=== PATIENT | male | born 1965 | race Hispanic/Latino ===

== ENCOUNTER 2017-04-22 20:20 | Emergency (ER) | payer MEDICARE ==
[2017-04-23 00:26] LABS: Basophils % (Auto) 2.9 % (0.0-1.8); Eosinophils % (Auto) 0.4 % (0.0-4.3); Hematocrit 38.8 % (35.5-45.6); Hemoglobin 13.9 gm/dl (11.8-15.2); Mean Corpuscular HGB Conc 36 % (32-34); Mean Corpuscular Hemoglobin 33 pg (28-32); Mean Corpuscular Volume 91 fl (84-94); Platelet Count 378 K/mm3 (140-440); Red Blood Count 4.29 M/mm3 (3.65-5.03); Red Cell Distribution Width 12.7 % (13.2-15.2); White Blood Count 9.9 K/mm3 (4.5-11.0)
[2017-04-23 00:47] LABS: Anion Gap 19 mmol/L; BUN/Creatinine Ratio 4; Blood Urea Nitrogen 3 mg/dL (9-20); Calcium 9.5 mg/dL (8.4-10.2); Carbon Dioxide 20 mmol/L (22-30); Chloride 104.2 mmol/L (98-107); Glucose 100 mg/dL (75-100); Potassium 3.3 mmol/L (3.6-5.0); Sodium 140 mmol/L (137-145)
[2017-04-23 00:49] LABS: Alanine Aminotransferase 8 units/L (7-56); Albumin 4.3 g/dL (3.9-5); Albumin/Globulin Ratio 1.6 %; Alkaline Phosphatase 101 units/L (35-129); Anion Gap 19 mmol/L; BUN/Creatinine Ratio 4; Blood Urea Nitrogen 3 mg/dL (9-20); Calcium 9.6 mg/dL (8.4-10.2); Carbon Dioxide 20 mmol/L (22-30); Chloride 104.6 mmol/L (98-107); Glucose 100 mg/dL (75-100); Lipase 29 units/L (13-60); Potassium 3.2 mmol/L (3.6-5.0); Sodium 140 mmol/L (137-145)
[2017-04-23] MEDS ORDERED: TYLENOL PO ONE (00:53)
[2017-04-23 01:26] LABS: Bilirubin,Urine NEG (Negative); Blood,Urine NEG (Negative); Ketones,Urine NEG (Negative); Leukocyte Esterase,Urine NEG (Negative); Nitrite,Urine NEG (Negative); Protein,Urine <15 mg/dL mg/dL (Negative); RBC,Urine < 1.0 /HPF (0.0-6.0); Urobilinogen,Urine < 2.0 mg/dL (<2.0); WBC,Urine < 1.0 /HPF (0.0-6.0)
[2017-04-23] MEDS ORDERED: MORPHINE IV ONE (10:21)
[2017-04-23] MEDS ORDERED: K-DUR PO ONE (10:30)
--- NOTE | 2017-04-23 10:53 | Emergency Department Report ---
HPI - General Chief Complaint: Chest Pain Time Seen by Provider: 04/23/17 09:56 - HPI HPI: 52-year-old male presents to the emergency department with complaint of right lower quadrant abdominal and flank pain that has been going on for the past 1-2 days. He denies any nausea, vomiting, diarrhea or constipation, dysuria or penile discharge. He says that he has a history of diverticulitis but has not had an episode of this for about 2 years. He has not taken anything for his symptoms prior to presentation. He also has a past medical history of COPD, hypertension, hepatitis C, esophageal varices and has a previous cholecystectomy. No recent travel or sick contacts at home. His primary care physician is a Dr. Santhosh Blank. ED Past Medical Hx - Past Medical History Previous Medical History?: Yes Hx Hypertension: Yes Hx Psychiatric Treatment: Yes (anxiety) Hx COPD: Yes Additional medical history: hep C., COLITIS, diverticulitis, esophageal varisces - Surgical History Past Surgical History?: Yes Additional Surgical History: "gallbladder" and "knee surgery" - Social History Smoking Status: Current Every Day Smoker - Medications Home Medications: Home Medications Medication Instructions Recorded Confirmed Last Taken Type Ondansetron [Zofran Odt] 4 mg PO Q6H #20 tab.rapdis 10/12/14 Unknown Rx Acetaminophen 650 mg PO Q6H PRN #20 tablet 04/23/17 Unknown Rx traMADol [Ultram 50 MG tab] 50 mg PO Q6HR PRN #3 tablet 04/23/17 Unknown Rx ED Review of Systems ROS: Stated complaint: LIGHTHEADED Other details as noted in HPI Comment: All other systems reviewed and negative Constitutional: denies: chills, fever Eyes: denies: eye pain, eye discharge, vision change ENT: denies: ear pain, throat pain Respiratory: denies: cough, shortness of breath, wheezing Cardiovascular: denies: palpitations, edema Gastrointestinal: abdominal pain. denies: nausea, vomiting Genitourinary: denies: urgency, dysuria Musculoskeletal: denies: arthralgia, myalgia Skin: denies: rash, lesions Neurological: denies: headache, weakness, paresthesias Physical Exam - Physical Exam Vital Signs: Vital Signs 04/22/17 04/22/17 04/23/17 22:33 23:29 00:58 Temperature 98.0 F 98.0 F Pulse Rate 89 Respiratory 19 20 18 Rate Blood Pressure 160/108 160/108 Blood Pressure [Left] Blood Pressure [Right] O2 Sat by Pulse 97 Oximetry 04/23/17 04/23/17 04/23/17 08:29 08:45 08:57 Temperature 97.7 F 98.8 F Pulse Rate 78 60 Respiratory 18 24 Rate Blood Pressure 158/82 Blood Pressure 168/95 [Left] Blood Pressure 166/96 [Right] O2 Sat by Pulse 98 98 Oximetry 04/23/17 04/23/17 04/23/17 09:00 09:16 09:30 Temperature Pulse Rate 64 56 L 66 Respiratory 23 25 H 25 H Rate Blood Pressure 158/82 168/95 167/85 Blood Pressure [Left] Blood Pressure [Right] O2 Sat by Pulse 96 94 Oximetry 04/23/17 09:46 Temperature Pulse Rate 66 Respiratory 25 H Rate Blood Pressure 167/85 Blood Pressure [Left] Blood Pressure [Right] O2 Sat by Pulse 99 Oximetry Physical Exam: GENERAL: The patient is well-developed well-nourished. HENT: Normocephalic. Atraumatic. Patient has moist mucous membranes. EYES: Extraocular motions are intact. Pupils equal reactive to light bilaterally. NECK: Supple. Trachea is midline. CHEST/LUNGS: Clear to auscultation. There is no respiratory distress noted. HEART/CARDIOVASCULAR: Regular. There is no tachycardia. There is no murmur. ABDOMEN: Abdomen is soft, nontender. Patient has normal bowel sounds. There is no abdominal distention. SKIN: Skin is warm and dry. NEURO: The patient is awake, alert, and oriented. The patient is cooperative. The patient has no focal neurologic deficits. The patient has normal speech and gait. MUSCULOSKELETAL: There is no tenderness or deformity. There is no limitation range of motion. There is no evidence of acute injury. ED Course Vital Signs 04/22/17 04/22/17 04/23/17 22:33 23:29 00:58 Temperature 98.0 F 98.0 F Pulse Rate 89 Respiratory 19 20 18 Rate Blood Pressure 160/108 160/108 Blood Pressure [Left] Blood Pressure [Right] O2 Sat by Pulse 97 Oximetry 04/23/17 04/23/17 04/23/17 08:29 08:45 08:57 Temperature 97.7 F 98.8 F Pulse Rate 78 60 Respiratory 18 24 Rate Blood Pressure 158/82 Blood Pressure 168/95 [Left] Blood Pressure 166/96 [Right] O2 Sat by Pulse 98 98 Oximetry 04/23/17 04/23/17 04/23/17 09:00 09:16 09:30 Temperature Pulse Rate 64 56 L 66 Respiratory 23 25 H 25 H Rate Blood Pressure 158/82 168/95 167/85 Blood Pressure [Left] Blood Pressure [Right] O2 Sat by Pulse 96 94 Oximetry 04/23/17 09:46 Temperature Pulse Rate 66 Respiratory 25 H Rate Blood Pressure 167/85 Blood Pressure [Left] Blood Pressure [Right] O2 Sat by Pulse 99 Oximetry - Reevaluation(s) Reevaluation #1: I went back to see the patient after the results of the CT scan, which came back as a normal CT scan of the abdomen and pelvis without any acute pathology. His labs have been completely normal. Vital signs within normal throughout the ED course. The patient has been here for 16 hours in total and does not appear in any acute distress. The patient is asking for pain medication. I looked him up on the [employer] prescription monitoring system and it appears that he was written for 30 pills of oxycodone 10 mg and 30 pills of morphine 15 mg on 04/12/17 which would be a 15 day supply. I told patient that I am uncomfortable providing him any narcotic pain medication as he should still have some of these left and should have a few days in order to follow up with a primary care physician. This angered the patient as he says he deserves pain medication and if he wanted to he would just go it off of the street. The patient also says that I called him a drug addict. I never said this or anything that sounds remotely like this but just explained to him that the [employer] prescription monitoring system shows that the medication should last him at least until the 15th of this month and that it is the 12th and therefore the medication is gone quicker than expected. The patient then says someone stole his pain medication from him. It should also be noted that I told the patient that his CT results did not show evidence of diverticulitis. This caused the patient to say that I was calling him a liar as he believes that a person always has diverticulitis. Despite the patient consistently yelling at me, I calmly corrected him that I never told him he has a liar and that he always has diverticulosis but does not have diverticulitis and attempted to explain the difference. 04/23/17 12:51 ED Medical Decision Making - Lab Data Result diagrams: 04/22/17 23:51 04/22/17 23:51 - EKG Data -: EKG Interpreted by Me EKG shows normal: sinus rhythm, axis, intervals (prolonged QT and QTC intervals) , QRS complexes, ST-T waves Rate: normal - EKG Data When compared to previous EKG there are: previous EKG unavailable Interpretation: other (sinus rhythm, normal axis, normal rate, prolonged QT and QTC intervals. No ST elevation CT) - Radiology Data Radiology results: report reviewed CT ABDOMEN PELVIS WITH CONTRAST: HISTORY: abdominal pain. COMPARISON: none. TECHNIQUE: Helical CT in 1.25mm intervals following IV contrast. Sagittal and coronal reconstructions. FINDINGS: Lung bases: Normal. Liver: Normal. Biliary system: Cholecystectomy changes. No biliary dilatation. Pancreas: Normal. Spleen: Normal. Kidneys/ureters/bladder: Normal. Adrenal glands: Normal. Aorta: Normal. Intestines: Mild sigmoid diverticulosis is noted. No acute inflammatory changes or bowel obstruction. Appendix: Normal. Pelvic viscera: Normal. Ascites: None. Adenopathy: None. Musculoskeletal: Moderate degenerative disc disease at L2-3. No fracture or bone lesion. IMPRESSION: Unremarkable CT scan of the abdomen and pelvis with contrast. Transcribed By: TTR Dictated By: MIKE SEGAL JR, MD Electronically Authenticated By: MIKE SEGAL JR, MD Signed Date/Time: 04/23/17 1219 - Medical Decision Making This patient was evaluated mostly for his abdominal and flank pain. There was some mention of chest pain earlier through triage with the patient did not mention this to me at any point, even before discharge. However he did have a negative troponin and a normal appearing EKG that did not show any signs of ST elevation CT. His labs were also unremarkable for any abdominal abnormalities including normal lipase, bilirubin and LFTs. Secondary to his complaints of diverticulitis and his abdominal pain, a CT of the abdomen and pelvis was done that did not show any acute process. As mentioned in the reevaluation section, the patient got very angry when he was not given a prescription for narcotic pain medication and refused NSAIDs. I eventually gave him a total of 3 pills of tramadol by prescription. I spoke with risk management. Overall the patient appeared comfortable every time he was reevaluated. He was seen ambulatory in the emergency department without any instability. He appears safe for discharge home and has been given referrals for primary care. He was encouraged to return to the emergency Department with any worsening of symptoms or any acute distress. Vital signs stable. - Differential Diagnosis diverticulitis, diverticulosis, colitis, appendicitis Critical Care Time: No Critical care attestation.: If time is entered above; I have spent that time in minutes in the direct care of this critically ill patient, excluding procedure time. ED Disposition Clinical Impression: Flank pain, Hypokalemia Abdominal pain Qualifiers: Abdominal location: unspecified location Qualified Code(s): R10.9 - Unspecified abdominal pain Hypertension Qualifiers: Hypertension type: essential hypertension Qualified Code(s): I10 - Essential ( primary) hypertension Disposition: TO HOME OR SELFCARE Is pt being admited?: No Condition: Stable Instructions: Abdominal Pain (ED), Hypertension (ED), Flank Pain (ED) Additional Instructions: Please follow-up with your primary care physician in the next few days. Return to the emergency Department with any worsening of your symptoms or any acute distress. Try and stay away from foods that are high in salt and caffeinated products to help with your blood pressure. Keep a blood pressure log. Prescriptions: Acetaminophen 650 mg PO Q6H PRN #20 tablet PRN Reason: Pain traMADol [Ultram 50 MG tab] 50 mg PO Q6HR PRN #3 tablet PRN Reason: Pain Referrals: [facility] [Outside] - 3-5 Days HAYDEN PATEL MD [Primary Care Provider] - 3-5 Days Time of Disposition: 12:45
[2017-04-23] MEDS ORDERED: ZESTRIL PO ONE (11:00)
[2017-04-23 11:46] VITALS: BP 169/98
--- NOTE | 2017-04-23 12:24 | Cat Scan Report ---
CT ABDOMEN PELVIS WITH CONTRAST: HISTORY: abdominal pain. COMPARISON: none. TECHNIQUE: Helical CT in 1.25mm intervals following IV contrast. Sagittal and coronal reconstructions. FINDINGS: Lung bases: Normal. Liver: Normal. Biliary system: Cholecystectomy changes. No biliary dilatation. Pancreas: Normal. Spleen: Normal. Kidneys/ureters/bladder: Normal. Adrenal glands: Normal. Aorta: Normal. Intestines: Mild sigmoid diverticulosis is noted. No acute inflammatory changes or bowel obstruction. Appendix: Normal. Pelvic viscera: Normal. Ascites: None. Adenopathy: None. Musculoskeletal: Moderate degenerative disc disease at L2-3. No fracture or bone lesion. IMPRESSION: Unremarkable CT scan of the abdomen and pelvis with contrast.
== END 2017-04-23 13:09 | disposition home or self-care (01) ==
LOC: ED 20:20
DX: E87.6 Hypokalemia (principal); R10.31 Right lower quadrant pain; I10 Essential (primary) hypertension; J44.9 Chronic obstructive pulmonary disease, unspecified; F17.200 Nicotine dependence, unspecified, uncomplicated
CPT/HCPCS: 36415; 74177; 80048; 80053; 81001; 83690; 84484; 85025; 93005; 93010; 96374; 99285; J2270; Q9967

== ENCOUNTER 2019-06-24 22:40 | Observation (INO) | payer MEDICARE ==
[2019-06-24] MEDS ORDERED: SODIUM CHLORIDE 0.9% 1000 ML 1,000 ML IV ONE (23:16)
[2019-06-24] MEDS ORDERED: ONDANSETRON 4 MG/2 ML INJ IV ONE (23:16)
[2019-06-24] MEDS ORDERED: HYDROmorphone 1 MG/1 ML INJ IV ONE (23:16)
--- NOTE | 2019-06-24 23:18 | Emergency Department Report ---
ED Abdominal Pain HPI - General Chief Complaint: Urogenital-Male Stated Complaint: LEFT TESTICLE/LOWER ABDOMINAL PAIN Time Seen by Provider: 06/24/19 23:10 Source: patient, EMS Mode of arrival: Ambulatory Limitations: No Limitations - History of Present Illness Initial Comments: Patient is a 54-year-old male that presents emergency room with complaints of right lower abdominal pain and left groin pain. Patient states that he has had a hernia for a year that he was supposed to get fixed but has never seen a surgeon for repair. Patient states he normally does not have pain in his hernia. Patient states today his pain started at around 9 AM. Patient states the pain is worsening. Patient states his pain is a 10 out of 10. Patient states is worse with movement and palpation. Patient states his pain is better with rest. Patient denies nausea vomiting. Patient denies fever and chills. MD Complaint: abdominal pain -: Sudden Location: LLQ, RLQ Radiation: other (Left groin) Migration to: no migration Severity: severe Severity scale (0 -10): 10 Quality: stabbing Consistency: constant Improves With: rest Worsens With: movement, other Associated Symptoms: denies: nausea, vomiting, diarrhea, fever, chills, constipation, dysuria, hematemesis, hematochezia, melena, hematuria, anorexia, syncope - Related Data Previous Rx's Medication Instructions Recorded Last Taken Type Ondansetron [Zofran Odt] 4 mg PO Q6H #20 tab.rapdis 10/12/14 Unknown Rx Acetaminophen 650 mg PO Q6H PRN #20 tablet 04/23/17 Unknown Rx traMADoL [Ultram 50 MG tab] 50 mg PO Q6HR PRN #3 tablet 04/23/17 Unknown Rx Allergies Allergy/AdvReac Type Severity Reaction Status Date / Time amino acids [From Ephadrene] Allergy Unknown Verified 10/12/14 15:45 chromium [From Ephadrene] Allergy Unknown Verified 10/12/14 15:45 cyanocobalamin (vitamin B12) Allergy Unknown Verified 10/12/14 15:45 [From Ephadrene] herbal complex no. 35 Allergy Unknown Verified 10/12/14 15:45 [From Ephadrene] pyridoxine [From Ephadrene] Allergy Unknown Verified 10/12/14 15:45 ED Review of Systems ROS: Stated complaint: LEFT TESTICLE/LOWER ABDOMINAL PAIN Other details as noted in HPI Constitutional: denies: chills, fever Eyes: denies: eye pain, eye discharge, vision change ENT: denies: ear pain, throat pain Respiratory: denies: cough, shortness of breath, wheezing Cardiovascular: denies: chest pain, palpitations Endocrine: no symptoms reported Gastrointestinal: abdominal pain. denies: nausea, diarrhea Genitourinary: denies: urgency, dysuria Musculoskeletal: denies: back pain, joint swelling, arthralgia Skin: denies: rash, lesions Neurological: denies: headache, weakness, paresthesias Psychiatric: denies: anxiety, depression Hematological/Lymphatic: denies: easy bleeding, easy bruising ED Past Medical Hx - Past Medical History Previous Medical History?: Yes Hx Hypertension: Yes Hx Psychiatric Treatment: Yes (anxiety) Hx COPD: Yes Additional medical history: hep C., COLITIS, diverticulitis, esophageal varisces, Hernia - Surgical History Past Surgical History?: Yes Additional Surgical History: "gallbladder" and "knee surgery" - Family History Family history: no significant - Social History Smoking Status: Current Every Day Smoker Substance Use Type: None - Medications Home Medications: Home Medications Medication Instructions Recorded Confirmed Last Taken Type Ondansetron [Zofran Odt] 4 mg PO Q6H #20 tab.rapdis 10/12/14 Unknown Rx Acetaminophen 650 mg PO Q6H PRN #20 tablet 04/23/17 Unknown Rx traMADoL [Ultram 50 MG tab] 50 mg PO Q6HR PRN #3 tablet 04/23/17 Unknown Rx ED Physical Exam - General Limitations: No Limitations General appearance: alert, in no apparent distress - Head Head exam: Present: atraumatic, normocephalic - Eye Eye exam: Present: normal appearance - ENT ENT exam: Present: mucous membranes moist - Neck Neck exam: Present: normal inspection - Respiratory Respiratory exam: Present: normal lung sounds bilaterally. Absent: respiratory distress - Cardiovascular Cardiovascular Exam: Present: regular rate, normal rhythm. Absent: systolic murmur, diastolic murmur, rubs, gallop - GI/Abdominal GI/Abdominal exam: Present: soft, tenderness (Left lower quadrant tenderness. Right lower quadrant tenderness.), normal bowel sounds, hernia (Left inguinal hernia not reducible and extremely tender to palpation.) - Rectal Rectal exam: Present: deferred - exam: Present: normal inspection. Absent: testicular tenderness, scrotal swelling External exam: Present: normal external exam - Extremities Exam Extremities exam: Present: normal inspection - Back Exam Back exam: Present: normal inspection - Neurological Exam Neurological exam: Present: alert, oriented X3 - Psychiatric Psychiatric exam: Present: normal affect, normal mood - Skin Skin exam: Present: warm, dry, intact, normal color. Absent: rash ED Course Vital Signs 06/24/19 06/24/19 06/24/19 22:45 23:14 23:36 Temperature 97.8 F Pulse Rate 53 L Respiratory 20 18 18 Rate Blood Pressure 128/72 O2 Sat by Pulse 100 98 Oximetry - Reevaluation(s) Reevaluation #1: I discussed all results with patient. I discussed plan of care with patient. Patient agrees with plan of care. Patient will be admitted to the hospitalist service. 06/25/19 02:34 - Consultations Consultation #1: I discussed case with Dr. Elliott general surgery. Dr. Elliott recommends admission and he will see the patient in the morning. 06/25/19 02:33 Consultation #2: Hospitalist consulted for admission. Hospitalist to admit patient. Bridge orders placed. 06/25/19 02:34 ED Medical Decision Making - Lab Data Result diagrams: 06/24/19 23:38 06/24/19 23:38 - Radiology Data Radiology results: report reviewed Left inguinal hernia without acute complications per radiologist report., - Medical Decision Making Patient is a 54-year-old male that presents emergency room with complaints of lower abdominal pain. Patient has a long history of inguinal hernia. Patient's inguinal hernias not reproducible patient is experience intractable pain. Patient clinical findings are consistent with an entrapped but not incarcerated hernia. Patient has a CT done which shows a left inguinal hernia without acute findings. Patient admitted to the hospitalist service. Prior to admission a general surgery consult was done. - Differential Diagnosis Incarcerated hernia, abdominal pain, Critical Care Time: Yes Critical care time in (mins) excluding proc time.: 35 Critical care attestation.: If time is entered above; I have spent that time in minutes in the direct care of this critically ill patient, excluding procedure time. Critical Care Time: 35 minutes ED Disposition Clinical Impression: Intractable abdominal pain Inguinal hernia Qualifiers: Obstruction and gangrene presence: without obstruction or gangrene Laterality: unilateral Recurrence: recurrent Qualified Code(s): K40.91 - Unilateral inguinal hernia, without obstruction or gangrene, recurrent Abdominal pain Qualifiers: Abdominal location: lower abdomen, unspecified Qualified Code(s): R10.30 - Lower abdominal pain, unspecified Disposition: 09 OP ADMIT IP TO THIS HOSP Is pt being admited?: Yes Does the pt Need Aspirin: No Condition: Critical Time of Disposition: 02:38
[2019-06-24 23:53] LABS: Basophils % (Auto) 0.5 % (0.0-1.8); Eosinophils # (Auto) 0.2 K/mm3 (0.0-0.4); Eosinophils % (Auto) 2.2 % (0.0-4.3); Hematocrit 37.9 % (35.5-45.6); Hemoglobin 13.1 gm/dl (11.8-15.2); Lymphocytes # (Auto) 3.3 K/mm3 (1.2-5.4); Lymphocytes % (Auto) 43.2 % (13.4-35.0); Mean Corpuscular HGB Conc 35 % (32-34); Mean Corpuscular Volume 95 fl (84-94); Monocytes # (Auto) 0.8 K/mm3 (0.0-0.8); Monocytes % (Auto) 9.9 % (0.0-7.3); Platelet Count 265 K/mm3 (140-440); Red Blood Count 4.01 M/mm3 (3.65-5.03); Red Cell Distribution Width 13.3 % (13.2-15.2)
[2019-06-25 00:08] LABS: Alanine Aminotransferase 17 units/L (7-56); Albumin 4.1 g/dL (3.9-5); BUN/Creatinine Ratio 10; Blood Urea Nitrogen 9 mg/dL (9-20); Calcium 8.8 mg/dL (8.4-10.2); Hemolysis Index 2
[2019-06-25 00:18] LABS: Bilirubin,Direct < 0.2 mg/dL (0-0.2)
[2019-06-25] MEDS ORDERED: HYDROmorphone 2 MG/1 ML INJ IV ONE (01:35)
[2019-06-25] MEDS ORDERED: HYDROmorphone 1 MG/1 ML INJ ONE (01:56)
--- NOTE | 2019-06-25 01:57 | Cat Scan Report ---
CT ABDOMEN AND PELVIS WITH CONTRAST INDICATION: Left lower quadrant and inguinal pain for one day. COMPARISON: CT abdomen and pelvis with contrast from 04/23/2017. TECHNIQUE: Axial, coronal and sagittal CT imaging of the abdomen and pelvis was performed after inje ction of 100 cc Omnipaque [address] scans at this location are performed using CT dose re duction for ALARA by means of automated exposure control. FINDINGS: Motion artifact limits portions of this exam. LOWER CHEST: No significant abnormality. LIVER: No significant abnormality. BILIARY: The gallbladder is surgically absent. Moderate intrahepatic and extra hepatic biliary ductal dilatation is greater than expected in a patient of this age with a prior cholecystectomy. This dila tation has increased slightly since the prior CT. No choledocholithiasis is clearly seen. PANCREAS: No significant abnormality. SPLEEN: No significant abnormality. ADRENALS: No significant abnormality. KIDNEYS AND URETERS: No significant abnormality. GI TRACT: There is a left internal hernia of medium-size containing fat and unremarkable appearing shay wel loops without associated inflammation. No additional significant abnormality of the stomach, smal l bowel or colon. The appendix is not seen. PERITONEUM: No free fluid. No free air. No fluid collection. LYMPH NODES: No significant adenopathy. VASCULATURE: No significant abnormality. URINARY BLADDER: No significant abnormality. REPRODUCTIVE ORGANS: No significant abnormality. ADDITIONAL FINDINGS: None. SKELETAL SYSTEM: No significant abnormality. IMPRESSION: 1. Left inguinal hernia as above without an acute complication. 2. Moderate biliary ductal dilatation is of uncertain significance. Correlation with the clinical fin dings and liver function testing is recommended. Signer Name: Tato Calabrese MD Signed: 06/25/2019 1:52 AM Workstation Name: [id number]
[2019-06-25] MEDS ORDERED: ONDANSETRON 4 MG/2 ML INJ IV PRN (02:49)
[2019-06-25] MEDS ORDERED: MORPHINE 2 MG/1 ML INJ IV PRN (02:50)
[2019-06-25] MEDS ORDERED: SODIUM CHLORIDE 0.45% 1000 ML 1,000 ML IV SCH (03:00)
--- NOTE | 2019-06-25 03:09 | History and Physical Report ---
<RAEANN PATTERSON - Last Filed: 06/25/19 03:10> History of Present Illness Date of examination: 06/25/19 Date of admission: 06/25/2019 Chief complaint: Abdominal and groin pain History of present illness: 54-year-old male who is an ongoing smoker with history of hypertension, anxiety, hep C, colitis, diverticulitis, esophageal varices, and hernia who presents to [facility] ED with complaints of abdominal and groin pain. Patients dates that he has been experiencing right lower quadrant abdominal pain and left groin pain x1 day. Of note patient has history of inguinal hernia and was supposed to get it surgically repaired approximately 1 year ago. Is not clear as to why patient did not have surgical repair. He describes the pain as sharp and aching and rates it 10/10. Pain is aggravated by movement and palpation and relieved with rest and pain medicine. Denies fever, nausea, emesis, chest pain, cough, shortness of breath, recent injury or trauma, or recent sick contacts. On examination patient is found to have a left inguinal hernia that is tender to palpation and is not reducible. General surgery has been consulted and plans to see patient today. Will admit for further evaluation and treatment. Past History Past Medical History: COPD, hypertension, other (Anxiety, hep C, colitis, diverticulitis, esophageal varices, hernia) Past Surgical History: Other (Gallbladder and knee surgery) Social history: single, Lives alone, smoking (Smokes a pack per day) Family history: no significant family history Medications and Allergies Allergies Allergy/AdvReac Type Severity Reaction Status Date / Time amino acids [From Ephadrene] Allergy Unknown Verified 10/12/14 15:45 chromium [From Ephadrene] Allergy Unknown Verified 10/12/14 15:45 cyanocobalamin (vitamin B12) Allergy Unknown Verified 10/12/14 15:45 [From Ephadrene] herbal complex no. 35 Allergy Unknown Verified 10/12/14 15:45 [From Ephadrene] pyridoxine [From Ephadrene] Allergy Unknown Verified 10/12/14 15:45 Home Medications Medication Instructions Recorded Confirmed Last Taken Type Ondansetron [Zofran Odt] 4 mg PO Q6H #20 tab.rapdis 10/12/14 06/25/19 Unknown Rx Acetaminophen 650 mg PO Q6H PRN #20 tablet 04/23/17 06/25/19 Unknown Rx traMADoL [Ultram 50 MG tab] 50 mg PO Q6HR PRN #3 tablet 04/23/17 06/25/19 Unknown Rx Active Meds: Active Medications Hydromorphone HCl (Dilaudid) 0.5 mg IV Q3H PRN PRN Reason: Pain , Severe (7-10) Sodium Chloride (Nacl 0.45% 1000 Ml) 1,000 mls @ 75 mls/hr IV DIRECT SACHA Stop: 06/25/19 12:00 Morphine Sulfate (Morphine) 2 mg IV Q4H PRN PRN Reason: Pain, Moderate (4-6) Ondansetron HCl (Zofran) 4 mg IV Q6H PRN PRN Reason: Nausea And Vomiting Sodium Chloride (Sodium Chloride Flush Syringe 10 Ml) 10 ml IV BID SACHA Sodium Chloride (Sodium Chloride Flush Syringe 10 Ml) 10 ml IV PRN PRN PRN Reason: LINE FLUSH Review of Systems Gastrointestinal: abdominal pain Genitourinary Male: testicular pain (left) Exam - Physical Exam Narrative exam: Physical exam General appearance: Present: No acute distress, alert and oriented 3, adult male - EENT Eyes: Present: PERRL, EOM intact ENT: hearing intact, poor dentition - Neck Neck: Present: supple, normal ROM - Respiratory Respiratory effort: Non-labored Respiratory: Clear throughout - Cardiovascular Heart rate:62 (bpm) Rhythm: Sinus rhythm Heart Sounds: Present: S1 & S2. Absent: rub, click - Extremities Extremities: no ischemia, pulses intact, - Peripheral Assessment Peripheral Pulses: within normal limits - Abdominal General gastrointestinal: soft, RLQ and LLQ tenderness, Left inguinal hernia not reducible and tender, normal bowel sounds - Integumentary Integumentary: Present: warm, dry - Musculoskeletal Musculoskeletal: Able to move all extremities -Neurological Neurological: CN II-XII intact - Psychiatric Psychiatric: cooperative - Constitutional Vitals: Temp Pulse Resp BP Pulse Ox 97.8 F 53 L 18 128/72 98 06/24/19 22:45 06/24/19 22:45 06/24/19 23:36 06/24/19 22:45 06/24/19 23:14 Results - Labs CBC & Chem 7: 06/24/19 23:38 06/24/19 23:38 Labs: Laboratory Last Values WBC 7.6 K/mm3 (4.5-11.0) 06/24/19 23: RBC 4.01 M/mm3 (3.65-5.03) 06/24/19 23: Hgb 13.1 gm/dl (11.8-15.2) 06/24/19 23:38 Hct 37.9 % (35.5-45.6) 06/24/19 23:38 MCV 95 fl (84-94) H 06/24/19 23:38 MCH 33 pg (28-32) H 06/24/19 23:38 MCHC 35 % (32-34) H 06/24/19 23:38 RDW 13.3 % (13.2-15.2) 06/24/19: Plt Count 265 K/mm3 (140-440) 06/24/19 23: Lymph % (Auto) 43.2 % (13.4-35.0) H 06/24/19 23:38 [place] % (Auto) 9.9 % (0.0-7.3) H 06/24/19 23:38 Eos % (Auto) 2.2 % (0.0-4.3) 06/24/19 23: Baso % (Auto) 0.5 % (0.0-1.8) 06/24/19 23: Lymph # 3.3 K/mm3 (1.2-5.4) 06/24/19 23: [place] # 0.8 K/mm3 (0.0-0.8) 06/24/19 23: Eos # 0.2 K/mm3 (0.0-0.4) 06/24/19 23: Baso # 0.0 K/mm3 (0.0-0.1) 06/24/19 23: Seg Neutrophils % 44.2 % (40.0-70.0) 06/24/19: Seg Neutrophils # 3.4 K/mm3 (1.8-7.7) 06/24/19 23:38 Sodium 135 mmol/L (137-145) L 06/24/19 23:38 Potassium 3.5 mmol/L (3.6-5.0) L 06/24/19 23: Chloride 98.7 mmol/L (98-107) 06/24/19 23:38 Carbon Dioxide 25 mmol/L (22-30) 06/24/19 23:38 Anion Gap 15 mmol/L 06/24/19 23:38 BUN 9 mg/dL (9-20) 06/24/19 23:38 Creatinine 0.9 mg/dL (0.8-1.5) 06/24/19 23:38 Estimated GFR > 60 ml/min 06/24/19 23:38 BUN/Creatinine Ratio 10 % 06/24/19 23:38 Glucose 86 mg/dL (75-100) 06/24/19 23:38 Lactic Acid 0.50 mmol/L (0.7-2.0) L 06/24/19 23:38 Calcium 8.8 mg/dL (8.4-10.2) 06/24/19 23:38 Total Bilirubin 0.50 mg/dL (0.1-1.2) 06/24/19 23:38 Direct Bilirubin < 0.2 mg/dL (0-0.2) 06/24/19 23:38 Indirect Bilirubin 0.3 mg/dL 06/24/19 23:38 AST 25 units/L (5-40) 06/24/19 23:38 ALT 17 units/L (7-56) 06/24/19 23:38 Alkaline Phosphatase 112 units/L (35-129) 06/24/19 23:38 Total Protein 6.8 g/dL (6.3-8.2) 06/24/19 23:38 Albumin 4.1 g/dL (3.9-5) 06/24/19 23:38 Albumin/Globulin Ratio 1.5 % 06/24/19 23:38 - Imaging and Cardiology Imaging and Cardiology: CT Abdomen/ Pelvis: Findings: 1. Left inguinal hernia of medium size containing fat and unremarkable appearing bowel loops Without acute complications. 2. Moderate intrahepatic and extrahepatic biliary duct dilatation is greater than expected in a patient of this age with a prior cholecystectomy. This dilatation has increased slightly since the prior CT. No choledocholithiasis is clearly seen. Assessment and Plan Assessment and plan: 54-year-old male who is an ongoing smoker with history of hypertension, anxiety, hep C, colitis, diverticulitis, esophageal varices, and hernia who presents to [facility] ED with complaints of abdominal and groin pain. Patients dates that he has been experiencing right lower quadrant abdominal pain and left groin pain x1 day. Left inguinal hernia -See on CT Abdomen/Pelvis -Hx of inguinal hernia x1 year -NPO -On IVF -Continue Supportive Care -General Surgery following Acute Abdominal Pain -Secondary to left inguinal hernia -Continue supportive care Hx HTN -Currently normotensive -Continue to monitor BP -Resume home antihypertensive meds once medication reconciliation has been updated Tobacco abuse -Current every day smoker -Smokes a pack per day -Counseled for cessation for 8 minutes -Nicotine patch when necessary DVT PPX -on SCD's Advance Directives: No VTE prophylaxis?: Mechanical Plan of care discussed with patient/family: Yes <KIRTI MARCELINO - Last Filed: 06/25/19 06:37> History of Present Illness Date of admission: 06/25/19 03:42 Medications and Allergies Active Meds: Active Medications Hydromorphone HCl (Dilaudid) 0.5 mg IV Q3H PRN PRN Reason: Pain , Severe (7-10) Last Admin: 06/25/19 05:47 Dose: 0.5 mg Documented by: Sodium Chloride (Nacl 0.45% 1000 Ml) 1,000 mls @ 75 mls/hr IV DIRECT SACHA Stop: 06/25/19 12:00 Last Admin: 06/25/19 05:46 Dose: 75 mls/hr Documented by: Morphine Sulfate (Morphine) 2 mg IV Q4H PRN PRN Reason: Pain, Moderate (4-6) Nicotine (Habitrol) 14 mg TD QDAY SACHA Ondansetron HCl (Zofran) 4 mg IV Q6H PRN PRN Reason: Nausea And Vomiting Sodium Chloride (Sodium Chloride Flush Syringe 10 Ml) 10 ml IV BID SACHA Sodium Chloride (Sodium Chloride Flush Syringe 10 Ml) 10 ml IV PRN PRN PRN Reason: LINE FLUSH Exam - Constitutional Vitals: Temp Pulse Resp BP Pulse Ox 98.4 F 70 18 132/84 100 06/25/19 05:00 06/25/19 05:00 06/25/19 05:00 06/25/19 05:00 06/25/19 05:00 Results - Labs CBC & Chem 7: 06/24/19 23:38 06/24/19 23:38 Labs: Laboratory Last Values WBC 7.6 K/mm3 (4.5-11.0) 06/24/19 23: RBC 4.01 M/mm3 (3.65-5.03) 06/24/19 23: Hgb 13.1 gm/dl (11.8-15.2) 06/24/19 23:38 Hct 37.9 % (35.5-45.6) 06/24/19 23:38 MCV 95 fl (84-94) H 06/24/19 23:38 MCH 33 pg (28-32) H 06/24/19 23:38 MCHC 35 % (32-34) H 06/24/19 23:38 RDW 13.3 % (13.2-15.2) 06/24/19: Plt Count 265 K/mm3 (140-440) 06/24/19 23: Lymph % (Auto) 43.2 % (13.4-35.0) H 06/24/19 23:38 [place] % (Auto) 9.9 % (0.0-7.3) H 06/24/19 23:38 Eos % (Auto) 2.2 % (0.0-4.3) 06/24/19 23: Baso % (Auto) 0.5 % (0.0-1.8) 06/24/19: Lymph # 3.3 K/mm3 (1.2-5.4) 06/24/19 23: [place] # 0.8 K/mm3 (0.0-0.8) 06/24/19: Eos # 0.2 K/mm3 (0.0-0.4) 06/24/19: Baso # 0.0 K/mm3 (0.0-0.1) 06/24/19 23: Seg Neutrophils % 44.2 % (40.0-70.0) 06/24/19: Seg Neutrophils # 3.4 K/mm3 (1.8-7.7) 06/24/19 23:38 Sodium 135 mmol/L (137-145) L 06/24/19:38 Potassium 3.5 mmol/L (3.6-5.0) L 06/24/19: Chloride 98.7 mmol/L (98-107) 06/24/19 23:38 Carbon Dioxide 25 mmol/L (22-30) 06/24/19 23:38 Anion Gap 15 mmol/L 06/24/19 23:38 BUN 9 mg/dL (9-20) 06/24/19 23:38 Creatinine 0.9 mg/dL (0.8-1.5) 06/24/19 23:38 Estimated GFR > 60 ml/min 06/24/19 23:38 BUN/Creatinine Ratio 10 % 06/24/19 23:38 Glucose 86 mg/dL (75-100) 06/24/19 23:38 Lactic Acid 0.50 mmol/L (0.7-2.0) L 06/24/19 23:38 Calcium 8.8 mg/dL (8.4-10.2) 06/24/19 23:38 Total Bilirubin 0.50 mg/dL (0.1-1.2) 06/24/19 23:38 Direct Bilirubin < 0.2 mg/dL (0-0.2) 06/24/19 23:38 Indirect Bilirubin 0.3 mg/dL 06/24/19 23:38 AST 25 units/L (5-40) 06/24/19 23:38 ALT 17 units/L (7-56) 06/24/19 23:38 Alkaline Phosphatase 112 units/L (35-129) 06/24/19 23:38 Total Protein 6.8 g/dL (6.3-8.2) 06/24/19 23:38 Albumin 4.1 g/dL (3.9-5) 06/24/19 23:38 Albumin/Globulin Ratio 1.5 % 06/24/19 23:38 Assessment and Plan Assessment and plan: Patient seen and examined, discussed with nurse practitioner, agree with plan as stated above
[2019-06-25] MEDS: HYDROmorphone 1 MG/1 ML INJ IV PRN ×2 (05:47→10:19)
--- NOTE | 2019-06-25 09:40 | Consultation ---
History of Present Illness Consult date: 06/25/19 Chief complaint: Left groin and testicle pain - History of present illness History of present illness: 54-year-old male with a past medical history of COPD, tobacco dependence, hepatitis C who presented to the emergency room with complaints of pain in his left groin as well as a bulge. Patient states this is been present for many years however has become larger and more painful over time. He states that the bulge is usually soft. He has not having any difficulty eating. He is having bowel movements and passing flatus. He complains of pain in the area of the bulge in his left groin as well as in his scrotum and upper thigh. The patient knows that he has a inguinal hernia however has not sought surgical repair. He states that over time he's had more difficulty walking due to the hernia and now walks with a cane. In the emergency room, the hernia was reported as not reducible. He also complains of a sore throat and productive cough with green sputum. Past History Past Medical History: COPD, hypertension, other (Anxiety, hep C, colitis, diverticulitis, esophageal varices, hernia) Past Surgical History: cholecystectomy, Other (Gallbladder and knee surgery) Social history: single, Lives alone, smoking (Smokes a pack per day) Family history: no significant family history Medications and Allergies Allergies Allergy/AdvReac Type Severity Reaction Status Date / Time amino acids [From Ephadrene] Allergy Unknown Verified 10/12/14 15:45 chromium [From Ephadrene] Allergy Unknown Verified 10/12/14 15:45 cyanocobalamin (vitamin B12) Allergy Unknown Verified 10/12/14 15:45 [From Ephadrene] herbal complex no. 35 Allergy Unknown Verified 10/12/14 15:45 [From Ephadrene] pyridoxine [From Ephadrene] Allergy Unknown Verified 10/12/14 15:45 Home Medications Medication Instructions Recorded Confirmed Last Taken Type Ondansetron [Zofran Odt] 4 mg PO Q6H #20 tab.rapdis 10/12/14 06/25/19 Unknown Rx Acetaminophen 650 mg PO Q6H PRN #20 tablet 04/23/17 06/25/19 Unknown Rx traMADoL [Ultram 50 MG tab] 50 mg PO Q6HR PRN #3 tablet 04/23/17 06/25/19 Unknown Rx Active Meds: Active Medications Hydromorphone HCl (Dilaudid) 0.5 mg IV Q3H PRN PRN Reason: Pain , Severe (7-10) Last Admin: 06/25/19 05:47 Dose: 0.5 mg Documented by: Sodium Chloride (Nacl 0.45% 1000 Ml) 1,000 mls @ 75 mls/hr IV DIRECT SACHA Stop: 06/25/19 12:00 Last Admin: 06/25/19 05:46 Dose: 75 mls/hr Documented by: Morphine Sulfate (Morphine) 2 mg IV Q4H PRN PRN Reason: Pain, Moderate (4-6) Nicotine (Habitrol) 14 mg TD QDAY SACHA Ondansetron HCl (Zofran) 4 mg IV Q6H PRN PRN Reason: Nausea And Vomiting Sodium Chloride (Sodium Chloride Flush Syringe 10 Ml) 10 ml IV BID SACHA Sodium Chloride (Sodium Chloride Flush Syringe 10 Ml) 10 ml IV PRN PRN PRN Reason: LINE FLUSH Review of Systems All systems: negative (10 point review systems was performed and negative except for that listed in HPI) Exam Vital Signs Temp Pulse Resp BP Pulse Ox 97.8 F 53 L 20 128/72 100 06/24/19 22:45 06/24/19 22:45 06/24/19 22:45 06/24/19 22:45 06/24/19 22:45 Narrative exam: Gen.: Awake, alert, oriented 3. No apparent distress ENT: No scleral icterus or conjunctival pallor. Very poor dentition CV: S1, S2 present Respiratory: No audible wheezes Abdomen: Soft, nondistended, nontender. No rebound, rigidity, guarding. There is a left inguinal hernia which is soft and easily reducible. There are no skin changes. There was mild tenderness to palpation during reduction of the hernia. Extremities: No clubbing, cyanosis, edema Results - Labs 06/24/19 23:38 06/24/19 23:38 Abnormal lab results 06/24/19 06/24/19 06/24/19 Range/Units 23:38 23:38 23:38 MCV 95 H (84-94) fl MCH 33 H (28-32) pg MCHC 35 H (32-34) % Lymph % (Auto) 43.2 H (13.4-35.0) % [place] % (Auto) 9.9 H (0.0-7.3) % Sodium 135 L (137-145) mmol/L Potassium 3.5 L (3.6-5.0) mmol/L Lactic Acid 0.50 L (0.7-2.0) mmol/L Diabetes panel 06/24/19 Range/Units 23:38 Sodium 135 L (137-145) mmol/L Potassium 3.5 L (3.6-5.0) mmol/L Chloride 98.7 (98-107) mmol/L Carbon Dioxide 25 (22-30) mmol/L BUN 9 (9-20) mg/dL Creatinine 0.9 (0.8-1.5) mg/dL Glucose 86 (75-100) mg/dL Calcium 8.8 (8.4-10.2) mg/dL AST 25 (5-40) units/L ALT 17 (7-56) units/L Alkaline Phosphatase 112 (35-129) units/L Total Protein 6.8 (6.3-8.2) g/dL Albumin 4.1 (3.9-5) g/dL Calcium panel 06/24/19 Range/Units 23:38 Calcium 8.8 (8.4-10.2) mg/dL Albumin 4.1 (3.9-5) g/dL Pituitary panel 06/24/19 Range/Units 23:38 Sodium 135 L (137-145) mmol/L Potassium 3.5 L (3.6-5.0) mmol/L Chloride 98.7 (98-107) mmol/L Carbon Dioxide 25 (22-30) mmol/L BUN 9 (9-20) mg/dL Creatinine 0.9 (0.8-1.5) mg/dL Glucose 86 (75-100) mg/dL Calcium 8.8 (8.4-10.2) mg/dL Adrenal panel 06/24/19 Range/Units 23:38 Sodium 135 L (137-145) mmol/L Potassium 3.5 L (3.6-5.0) mmol/L Chloride 98.7 (98-107) mmol/L Carbon Dioxide 25 (22-30) mmol/L BUN 9 (9-20) mg/dL Creatinine 0.9 (0.8-1.5) mg/dL Glucose 86 (75-100) mg/dL Calcium 8.8 (8.4-10.2) mg/dL Total Bilirubin 0.50 (0.1-1.2) mg/dL AST 25 (5-40) units/L ALT 17 (7-56) units/L Alkaline Phosphatase 112 (35-129) units/L Total Protein 6.8 (6.3-8.2) g/dL Albumin 4.1 (3.9-5) g/dL - Imaging CT scan - abdomen: report reviewed, image reviewed CT scan - pelvis: report reviewed, image reviewed Assessment and Plan 54 yo M with reducible left inguinal hernia Plan: 1. As patient has pain even after reduction, will proceed with hernia repair t his admission. Discussed all risks, benefits, alternatives to surgery with patient and questions answered. Consent obtained for robotic assisted LEFT inguinal hernia repair with mesh, possible open, possible bowel resection 2. Pt advised to stop smoking as this can increase his risk of post operative infection, hernia recurrence, and other complications. He understands 3. prn pain control 4. continue NPO 5. OOB/ambulate 6. DVT ppx Pt will call his Aunt Kavita to inform her that he is having surgery. Thank you, please call with questions
[2019-06-25] MEDS ORDERED: ceFAZolin/Water 2 GM/20 ML 2 GM/20 ML SYRINGE IV NR (10:00)
[2019-06-25] MEDS ORDERED: NICOTINE 14 MG/24 HR PATCH TD SCH (10:00)
--- NOTE | 2019-06-25 10:22 | Anesthesia Day of Surgery ---
Anesthesia Day of Surgery - Day of Surgery Patient Examined: Yes Patient H&P Reviewed: Yes Patient is NPO: Yes Beta Blockers: No Cardiac Clearance: No Pulmonary Clearance: No Victor Hugo's Test: N/A
--- NOTE | 2019-06-25 10:26 | Event Note ---
Date: 06/25/19 Patient with left inguinal hernia. I have seen and examined him.
--- NOTE | 2019-06-25 10:28 | Anesthesia Consultation ---
Anesthesia Consult and Med Hx Date of service: 06/25/19 - Airway Anesthetic Teeth Evaluation: Poor ROM Head & Neck: Adequate Mental/Hyoid Distance: Adequate Mallampati Class: Class II Intubation Access Assessment: Probably Good - Pulmonary Exam CTA: Yes - Cardiac Exam Cardiac Exam: RRR - Pre-Operative Health Status ASA Pre-Surgery Classification: ASA3 Proposed Anesthetic Plan: General - Pulmonary Hx Smoking: Yes Hx Asthma: Yes Hx Respiratory Symptoms: Yes (c/o sore throat and nasal drainage) COPD: Yes - Cardiovascular System Hx Hypertension: Yes - Additional Comments Anesthesia Medical History Comments: A, A, Ox3. c/o abd pain a hernia site. NPO solids x2 days. Clear liquids yesterday. H/O previous anesthesia w/out complications.
--- NOTE | 2019-06-25 11:22 | Event Note ---
Date: 06/25/19 Patient was brought down to the preoperative area. He reported to the nursing staff that he changed his mind and did not want to have surgery. I discussed this with the patient. He states that he has concerns about being put under anesthesia, not having a dependable ride home after surgery, and his productive cough. I explained to the patient that these are all reasonable concerns. We did address each of these concerns, however he does not want to have surgery for the inguinal hernia at this time. Explained to him that as the hernia is reducible, it can be fixed nonurgently as an outpatient. He is agreeable to this plan. I spoke with Dr. Bosch who will assess the patient's c/o productive cough. Patient may be started on a diet and discharged from surgical standpoint. He may follow up in surgery clinic as outpatient to be scheduled for elective LEFT inguinal hernia repair.
[2019-06-25 13:04] VITALS: BP 109/45
--- NOTE | 2019-06-25 13:48 | XRay Report ---
CHEST 2 VIEWS INDICATION: cough. COMPARISON: None FINDINGS: Support devices: None. Heart: Within normal limits. Lungs/pleura: No acute air space or interstitial disease. No pneumothorax. Additional findings: None. IMPRESSION: No acute findings. Signer Name: Zi Simpson Jr, MD Signed: 06/25/2019 1:44 PM Workstation Name: [id number]
[2019-06-25] MEDS ORDERED: guaiFENesin 100 MG/5 ML ORAL LIQD PO PRN (14:01)
--- NOTE | 2019-06-25 14:18 | Discharge Summary ---
<HAYDEN COSME - Last Filed: 06/25/19 14:15> Providers - Providers Date of Admission: 06/25/19 03:42 Date of discharge: 06/25/19 Attending physician: HAYDEN COSME 06/25/19 02:33 Consult to Physician [CONS] Routine Comment: Dr. Patel spoke with Dr. Elliott @ 0225 Consulting Provider: KIKI ELLIOTT Physician Instructions: Reason For Exam: iguinal hernia Primary care physician: INTERVENTIONIST Hospitalization Condition: Fair Core Measure Documentation - Palliative Care Palliative Care/ Comfort Measures: Not Applicable - Core Measures Any of the following diagnoses?: none Exam - Constitutional Vitals: Temp Pulse Resp BP Pulse Ox 98.2 F 56 L 20 109/45 95 06/25/19 11:43 06/25/19 11:43 06/25/19 11:43 06/25/19 11:43 06/25/19 11:43 Plan Activity: no restrictions Diet: regular Plan of Treatment: 1.Follow up with PCP in 1 week. 2.Follow up with Dr. Romain Baez in Surgical Clinic in 1 week. Follow up with: ROMAIN GARCIA MD [Staff Physician] - 7 Days PRIMARY CARE, [Primary Care Provider] - 3-5 Days Prescriptions: guaiFENesin [Robitussin] 200 mg PO Q4H PRN #1 bottle PRN Reason: Cough <GERITYLER CALDWELL - Last Filed: 06/25/19 14:47> Providers - Providers Date of Admission: 06/25/19 03:42 Attending physician: HAYDEN COSME 06/25/19 02:33 Consult to Physician [CONS] Routine Comment: Dr. Patel spoke with Dr. Elliott @ 0225 Consulting Provider: KIKI ELLIOTT Physician Instructions: Reason For Exam: iguinal hernia Primary care physician: INTERVENTIONIST Exam - Constitutional Vitals: Temp Pulse Resp BP Pulse Ox 98.2 F 56 L 20 109/45 95 06/25/19 11:43 06/25/19 11:43 06/25/19 11:43 06/25/19 11:43 06/25/19 11:43
[2019-06-25] MEDS ORDERED: traMADol 50 MG TAB PO ONE (15:22)
== END 2019-06-25 17:45 | disposition home or self-care (01) ==
LOC: ED 22:40 → INTOOBSV 06-25 03:42 → 3A 06-25 03:42
PROVIDERS: ADMIT Internal Medicine; ATTEND Internal Medicine
DX: K40.91 Unilateral inguinal hernia, without obstruction or gangrene, recurrent (principal); I10 Essential (primary) hypertension; F41.9 Anxiety disorder, unspecified; J44.9 Chronic obstructive pulmonary disease, unspecified; F17.210 Nicotine dependence, cigarettes, uncomplicated; Z71.3 Dietary counseling and surveillance; Z87.19 Personal history of other diseases of the digestive system; Z79.899 Other long term (current) drug therapy; Z88.8 Allergy status to other drugs, medicaments and biological substances
CPT/HCPCS: 36415; 71046; 74177; 80048; 80076; 82140; 82962; 85025; 96374; 96375; 96376; 99291; 99406; G0378; J1170; J2405; J7030; Q9967

== ENCOUNTER 2019-07-08 11:00 | Emergency (ER) | payer MEDICARE ==
--- NOTE | 2019-07-08 12:07 | Event Note ---
ED Screening Note Date of service: 07/08/19 Time: 12:03 ED Screening Note: 54 y o male presents with inguinal herenia with noticing blood in his stool toda This initial assessment/diagnostic orders/clinical plan/treatment(s) is/are subject to change based on patients health status, clinical progression and re- assessment by fellow clinical providers in the ED. Further treatment and workup at subsequent clinical providers discretion. Patient/guardian urged not to elope from the ED as their condition may be serious if not clinically assessed and managed. Initial orders include: labs, ct scan, main side eval
--- NOTE | 2019-07-08 12:53 | Emergency Department Report ---
ED Abdominal Pain HPI - General Chief Complaint: Abdominal Pain Stated Complaint: ABD PAIN/HERNIA Time Seen by Provider: 07/08/19 12:43 Source: patient Mode of arrival: Wheelchair Limitations: No Limitations - History of Present Illness Initial Comments: 54-year-old male presents to ED complaining of pain to his left inguinal hernia. Hernia has been present for quite some time. Patient states he was recently admitted a couple of weeks ago and was to to undergo hernia repair, however he left the hospital because he would not be able to get a ride home following surgery. Patient states he has had pain for the last 3 days. Patient denies fever, nausea, vomiting, constipation. Patient has not followed up with the surgeon on an outpatient basis. States he needs pain medication. MD Complaint: abdominal pain -: days(s) (3) Radiation: LLQ Migration to: no migration Severity: moderate Consistency: intermittent Improves With: nothing Worsens With: other (walking) Associated Symptoms: denies: nausea, vomiting, fever - Related Data Previous Rx's Medication Instructions Recorded Last Taken Type Ondansetron [Zofran ODT TAB] 4 mg PO Q6H #20 tab.rapdis 10/12/14 Unknown Rx Acetaminophen 650 mg PO Q6H PRN #20 tablet 04/23/17 Unknown Rx traMADoL [Ultram 50 MG tab] 50 mg PO Q6HR PRN #3 tablet 04/23/17 Unknown Rx guaiFENesin [Robitussin] 200 mg PO Q4H PRN #1 bottle 06/25/19 Unknown Rx traMADoL [Ultram] 50 mg PO Q6HR PRN #7 tablet 07/08/19 Unknown Rx Allergies Allergy/AdvReac Type Severity Reaction Status Date / Time amino acids [From Ephadrene] Allergy Unknown Verified 10/12/14 15:45 chromium [From Ephadrene] Allergy Unknown Verified 10/12/14 15:45 cyanocobalamin (vitamin B12) Allergy Unknown Verified 10/12/14 15:45 [From Ephadrene] herbal complex no. 35 Allergy Unknown Verified 10/12/14 15:45 [From Ephadrene] pyridoxine [From Ephadrene] Allergy Unknown Verified 10/12/14 15:45 ED Review of Systems ROS: Stated complaint: ABD PAIN/HERNIA Other details as noted in HPI Comment: All other systems reviewed and negative Constitutional: denies: chills, fever Gastrointestinal: abdominal pain. denies: nausea, vomiting, diarrhea, constipation ED Past Medical Hx - Past Medical History Previous Medical History?: Yes Hx Hypertension: Yes Hx Congestive Heart Failure: No Hx Diabetes: No Hx Seizures: Yes Hx Psychiatric Treatment: Yes (anxiety) Hx Asthma: Yes Hx COPD: Yes Hx HIV: No Additional medical history: hep C., COLITIS, diverticulitis, esophageal varisces, Hernia - Surgical History Past Surgical History?: Yes Hx Cholecystectomy: Yes Additional Surgical History: "gallbladder" and "knee surgery" - Social History Smoking Status: Never Smoker Substance Use Type: None - Medications Home Medications: Home Medications Medication Instructions Recorded Confirmed Last Taken Type Ondansetron [Zofran ODT TAB] 4 mg PO Q6H #20 tab.rapdis 10/12/14 06/25/19 Unknown Rx Acetaminophen 650 mg PO Q6H PRN #20 tablet 04/23/17 06/25/19 Unknown Rx traMADoL [Ultram 50 MG tab] 50 mg PO Q6HR PRN #3 tablet 04/23/17 06/25/19 Unknown Rx guaiFENesin [Robitussin] 200 mg PO Q4H PRN #1 bottle 06/25/19 Unknown Rx traMADoL [Ultram] 50 mg PO Q6HR PRN #7 tablet 07/08/19 Unknown Rx ED Physical Exam - General Limitations: No Limitations General appearance: alert, in no apparent distress - Head Head exam: Present: atraumatic, normocephalic - Eye Eye exam: Present: normal appearance, EOMI - ENT ENT exam: Present: mucous membranes moist - Neck Neck exam: Present: normal inspection - Respiratory Respiratory exam: Present: normal lung sounds bilaterally. Absent: respiratory distress - Cardiovascular Cardiovascular Exam: Present: regular rate, normal rhythm - GI/Abdominal GI/Abdominal exam: Present: soft, hernia (left inguinal hernia present, easily reducible). Absent: distended, tenderness - Extremities Exam Extremities exam: Present: normal inspection - Neurological Exam Neurological exam: Present: alert, oriented X3 - Psychiatric Psychiatric exam: Present: normal affect, normal mood - Skin Skin exam: Present: warm, dry, intact, normal color ED Course Vital Signs 07/08/19 12:02 Temperature 98 F Pulse Rate 65 Respiratory 18 Rate Blood Pressure 122/78 O2 Sat by Pulse 100 Oximetry ED Medical Decision Making - Medical Decision Making I read patient's note from previous admission on 06/25/2019. Patient was actually taken down to the OR for his surgery, and there decided that he did not want to undergo surgery due to concerns about anesthesia and transportation home. Dr. Nevarez's note states that since patient had a reducible hernia, he could follow-up, nonurgently, on an outpatient basis. In speaking with the patient, he still does not want to undergo surgery at this time. Hernia is still reproducible. Abdomen is soft and nontender. Patient is tolerating p.o. Vitals are normal. Will advise patient to follow-up with general surgery. Return precautions given. Critical care attestation.: If time is entered above; I have spent that time in minutes in the direct care of this critically ill patient, excluding procedure time. ED Disposition Clinical Impression: Reducible left inguinal hernia Disposition: DC- TO HOME OR SELFCARE Is pt being admited?: No Condition: Stable Instructions: Inguinal Hernia (ED) Referrals: TYLER NEVAREZ DO [Staff Physician] - 3-5 Days Time of Disposition: 13:03
[2019-07-08] MEDS ORDERED: traMADol 50 MG TAB PO ONE (12:57)
[2019-07-08 12:59] VITALS: BP 147/82
== END 2019-07-08 13:32 | disposition home or self-care (01) ==
LOC: ED 11:00
DX: K40.90 Unilateral inguinal hernia, without obstruction or gangrene, not specified as recurrent (principal); I10 Essential (primary) hypertension; F41.9 Anxiety disorder, unspecified; J44.9 Chronic obstructive pulmonary disease, unspecified; Z86.69 Personal history of other diseases of the nervous system and sense organs; Z98.890 Other specified postprocedural states; Z88.1 Allergy status to other antibiotic agents; Z88.8 Allergy status to other drugs, medicaments and biological substances; Z79.899 Other long term (current) drug therapy

== ENCOUNTER 2020-07-14 22:54 | Emergency (ER) | payer MEDICARE ==
[2020-07-14] MEDS ORDERED: MORPHINE 2 MG/1 ML INJ IV ONE (23:09)
[2020-07-14] MEDS ORDERED: ONDANSETRON 4 MG/2 ML INJ IV ONE (23:09)
--- NOTE | 2020-07-14 23:18 | Emergency Department Report ---
ED Abdominal Pain HPI - General Stated Complaint: GROIN,LEG PAIN Time Seen by Provider: 07/14/20 23:09 - History of Present Illness Initial Comments: 55-year-old male presents to ED with right lower abdominal pain. Patient is status post LEFT inguinal hernia repair 3 weeks ago at [facility]. Yesterday, patient had an episode of nausea and vomiting. After work, he reports having pain and bulging in the RIGHT inguinal area, which he noticed t saba urinating. Patient also reports some periumbilical pain. MD Complaint: abdominal pain -: days(s) (2) Location: RLQ Radiation: other (Groin) Migration to: no migration Quality: aching Consistency: constant Improves With: nothing Worsens With: nothing Associated Symptoms: nausea, vomiting. denies: diarrhea, fever - Related Data Previous Rx's Medication Instructions Recorded Last Taken Type Ondansetron [Zofran ODT TAB] 4 mg PO Q6H #20 tab.rapdis 10/12/14 Unknown Rx Acetaminophen 650 mg PO Q6H PRN #20 tablet 04/23/17 Unknown Rx traMADoL [Ultram 50 MG tab] 50 mg PO Q6HR PRN #3 tablet 04/23/17 Unknown Rx guaiFENesin [Robitussin] 200 mg PO Q4H PRN #1 bottle 06/25/19 Unknown Rx traMADoL [Ultram] 50 mg PO Q6HR PRN #7 tablet 07/08/19 Unknown Rx Naproxen [Naprosyn] 500 mg PO BID #20 tablet 07/15/20 Unknown Rx traMADoL [Ultram] 50 mg PO Q6HR PRN #7 tablet 07/15/20 Unknown Rx Allergies Allergy/AdvReac Type Severity Reaction Status Date / Time amino acids [From Ephadrene] Allergy Unknown Verified 10/12/14 15:45 chromium [From Ephadrene] Allergy Unknown Verified 10/12/14 15:45 cyanocobalamin (vitamin B12) Allergy Unknown Verified 10/12/14 15:45 [From Ephadrene] herbal complex no. 35 Allergy Unknown Verified 10/12/14 15:45 [From Ephadrene] pyridoxine [From Ephadrene] Allergy Unknown Verified 10/12/14 15:45 ED Review of Systems ROS: Stated complaint: GROIN,LEG PAIN Other details as noted in HPI Comment: All other systems reviewed and negative Constitutional: denies: chills, fever Gastrointestinal: abdominal pain, nausea, vomiting ED Past Medical Hx - Past Medical History Hx Hypertension: Yes Hx Congestive Heart Failure: No Hx Diabetes: No Hx Seizures: Yes Hx Psychiatric Treatment: Yes (anxiety) Hx Asthma: Yes Hx COPD: Yes Hx HIV: No Additional medical history: hep C., COLITIS, diverticulitis, esophageal varisces, Hernia - Surgical History Hx Cholecystectomy: Yes Additional Surgical History: "gallbladder" and "knee surgery" - Social History Smoking Status: Never Smoker Substance Use Type: None - Medications Home Medications: Home Medications Medication Instructions Recorded Confirmed Last Taken Type Ondansetron [Zofran ODT TAB] 4 mg PO Q6H #20 tab.rapdis 10/12/14 06/25/19 Unknown Rx Acetaminophen 650 mg PO Q6H PRN #20 tablet 04/23/17 06/25/19 Unknown Rx traMADoL [Ultram 50 MG tab] 50 mg PO Q6HR PRN #3 tablet 04/23/17 06/25/19 Unk nown Rx guaiFENesin [Robitussin] 200 mg PO Q4H PRN #1 bottle 06/25/19 Unknown Rx traMADoL [Ultram] 50 mg PO Q6HR PRN #7 tablet 07/08/19 Unknown Rx Naproxen [Naprosyn] 500 mg PO BID #20 tablet 07/15/20 Unknown Rx traMADoL [Ultram] 50 mg PO Q6HR PRN #7 tablet 07/15/20 Unknown Rx ED Physical Exam - General General appearance: alert, in no apparent distress - Head Head exam: Present: atraumatic, normocephalic - Eye Eye exam: Present: normal appearance, EOMI - ENT ENT exam: Present: mucous membranes moist - Neck Neck exam: Present: normal inspection - Respiratory Respiratory exam: Present: normal lung sounds bilaterally. Absent: respiratory distress - Cardiovascular Cardiovascular Exam: Present: regular rate, normal rhythm - GI/Abdominal GI/Abdominal exam: Present: soft, hernia (Small right inguinal hernia present, reducible). Absent: distended - Extremities Exam Extremities exam: Present: normal inspection - Neurological Exam Neurological exam: Present: alert, oriented X3 - Psychiatric Psychiatric exam: Present: normal affect, normal mood - Skin Skin exam: Present: warm, dry, intact, normal color ED Course Vital Signs 07/14/20 07/14/20 07/15/20 23:44 23:48 01:06 Temperature 98.0 F Pulse Rate 69 65 Respiratory 18 18 18 Rate Blood Pressure 141/123 Blood Pressure 155/84 [Left] O2 Sat by Pulse 100 99 Oximetry ED Medical Decision Making - Lab Data Result diagrams: 07/14/20 23:35 07/14/20 23:35 - Radiology Data Radiology results: report reviewed, image reviewed - Medical Decision Making 55-year-old male status post left inguinal hernia repair 3 weeks ago. Patient presents with reducible right inguinal hernia tonight. He reports some pain, nausea, vomiting. Labs are unremarkable, except for hypokalemia of 3.1. Potassium given. CT abdomen pelvis shows no evidence of bowel obstruction or incarcerated hernia. Patient will be discharged at this time. Outpatient follow-up with his surgeon as recommended. Return precautions given. - Differential Diagnosis Hernia, bowel obstruction Critical care attestation.: If time is entered above; I have spent that time in minutes in the direct care of this critically ill patient, excluding procedure time. ED Disposition Clinical Impression: Right inguinal hernia Disposition: -01 TO HOME OR SELFCARE Is pt being admited?: No Condition: Stable Instructions: Inguinal Hernia, Adult, [id number] Prescriptions: Naproxen [Naprosyn] 500 mg PO BID #20 tablet traMADoL [Ultram] 50 mg PO Q6HR PRN #7 tablet PRN Reason: Pain Referrals: JUSTYN AMES MD [Primary Care Provider] - 3-5 Days ELIO GUZMAN MD [Staff Physician] - 3-5 Days Time of Disposition: 01:12
[2020-07-15 00:02] LABS: Basophils % (Auto) 0.4 % (0.0-1.8); Eosinophils # (Auto) 0.2 K/mm3 (0.0-0.4); Eosinophils % (Auto) 2.8 % (0.0-4.3); Hemoglobin 13.3 gm/dl (11.8-15.2); Lymphocytes # (Auto) 3.1 K/mm3 (1.2-5.4); Lymphocytes % (Auto) 35.5 % (13.4-35.0); Mean Corpuscular HGB Conc 35 % (32-34); Mean Corpuscular Volume 95 fl (84-94); Monocytes # (Auto) 0.9 K/mm3 (0.0-0.8); Monocytes % (Auto) 10.3 % (0.0-7.3); Platelet Count 264 K/mm3 (140-440); Red Blood Count 4.01 M/mm3 (3.65-5.03); Red Cell Distribution Width 13.1 % (13.2-15.2)
[2020-07-15 00:10] LABS: BUN/Creatinine Ratio 5; Blood Urea Nitrogen 5 mg/dL (9-20); Calcium 8.3 mg/dL (8.4-10.2); Hemolysis Index 4
[2020-07-15] MEDS ORDERED: POTASSIUM CHLORIDE ER 20 MEQ TAB PO ONE (00:49)
--- NOTE | 2020-07-15 00:54 | Cat Scan Report ---
CT ABDOMEN AND PELVIS WITH CONTRAST HISTORY: Abdominal pain. COMPARISON: Prior CT on 06/24/2019 TECHNIQUE: Routine abdominal and pelvic CT exam performed following intravenous contrast administrat ion.. All CT scans at this location are performed using CT dose reduction for ALARA by means of autom ated exposure control. FINDINGS: CT ABDOMEN: Lung Bases: No significant abnormality. Liver: No significant abnormality. Biliary: Gallbladder is surgically absent. Unchanged mild biliary ductal dilation. Likely due to rese rvoir effect from previous cholecystectomy. Spleen: No significant abnormality. Unenlarged. Pancreas: No significant abnormality. Adrenals: No significant abnormality. Kidneys: No significant abnormality. Lymphatics: No lymphadenopathy. Vasculature: No significant abnormality. Bowel/Peritoneum: Nonobstructive bowel. Sigmoid diverticulosis without mesocolonic fat stranding. No free air. No free fluid. Appendix not visualized. No pericecal inflammation. There is no appreciable internal hernia. CT PELVIC: : No significant abnormality. Lymphatics: No lymphadenopathy. Osseous Structures: No aggressive appearing osseous lesions. Additional Findings: None IMPRESSION: 1. No acute findings. 2. No appreciable inguinal hernia on the current study. Signer Name: Omid Morton MD Signed: 07/15/2020 12:50 AM Workstation Name: [id number]
[2020-07-15 01:28] VITALS: BP 132/82
== END 2020-07-15 01:55 | disposition home or self-care (01) ==
LOC: ED 22:54
DX: K40.90 Unilateral inguinal hernia, without obstruction or gangrene, not specified as recurrent (principal); I10 Essential (primary) hypertension; R56.9 Unspecified convulsions; F41.9 Anxiety disorder, unspecified; J44.9 Chronic obstructive pulmonary disease, unspecified; Z90.49 Acquired absence of other specified parts of digestive tract; Z98.890 Other specified postprocedural states; Z79.899 Other long term (current) drug therapy; Z88.8 Allergy status to other drugs, medicaments and biological substances
CPT/HCPCS: 36415; 74177; 80048; 85025; 96374; 96375; 99284; J2270; J2405; Q9967

== ENCOUNTER 2021-10-18 23:04 | Emergency (ER) | payer MEDICARE | END 2021-10-18 23:10 | disposition left against medical advice (07) | LOC: ED 23:04 | DX: R10.9 Unspecified abdominal pain (principal); Z53.21 Procedure and treatment not carried out due to patient leaving prior to being seen by health care provider ==